=== PATIENT | male | born 1945 | race Caucasian/White ===

== ENCOUNTER → 2018-07-16 | Outpatient (CLI) | payer MEDICARE, OTHER ==
--- NOTE | 2018-07-16 13:44 | Diagnostic Imaging Report ---
Exam: KUB - 2 views Clinical History: Renal calculus. Comparison: Report from CT abdomen/pelvis dated 10/06/2008, the images are not available for review. Findings: The upper abdomen is partially excluded from the [id number]. No radiographic evidence of stone overlying the expected location of the kidneys, ureters, or bladder. Likely phleboliths project over the pelvis. Non-obstructive bowel gas pattern. No acute bony abnormality. Impression: No radiographic evidence of urinary stone. Signed by: Dr. Kelby Arenas MD on 07/16/2018 1:40 PM
== END ==
LOC: US 11:15
PROVIDERS: ATTEND Urology
DX: N18.9 Chronic kidney disease, unspecified (principal)
CPT/HCPCS: 74018

== ENCOUNTER → 2018-07-17 | Outpatient (CLI) | payer MEDICARE, OTHER ==
--- NOTE | 2018-07-17 16:21 | Diagnostic Imaging Report ---
EXAM: Renal Ultrasound INDICATION: Chronic kidney disease. COMPARISON: None TECHNIQUE: Transverse and longitudinal images of the kidneys and bladder were obtained. FINDINGS: Right Kidney: Length: Measures 11.2 x 5.6 x 5.1 cm, the renal cortex measures 1.4 cm Appearance: Increased echogenicity. Collecting system: No hydronephrosis Stones: None Cyst/Mass: There is an anechoic bilobed cyst with a possible thin septation in the upper pole. The cyst measures up to 2.3 x 2.1 x 2.8 cm. Left Kidney: Length: Measures 12.7 x 5.5 x 5.1 cm, the renal cortex measures 1.7 cm. Appearance: Increased echogenicity. Collecting system: No hydronephrosis Stones: None Cyst/Mass: Multiple left-sided simple appearing predominant anechoic cysts, measuring up to 2.2 x 1.6 x 1.8 cm in the midpole, an additional 1.5 x 1.4 x 1.7 cm cyst in the midpole, and a 1.7 x 1.3 x 1.5 cm cyst in the inferior pole. Bladder: Unremarkable in appearance. Bilateral ureteral jets are present. The prevoid volume is 137.8 cc. The post void volume is not recorded. Prostate: The prostate measures 4.5 x 4.8 x 3.8 cm. The volume is 43.2 cc. IMPRESSION: Increased renal echogenicity, suggestive of medical renal disease. No evidence of hydronephrosis. Prostatomegaly. Multiple simple appearing left-sided cysts. Anechoic 2.8 cm bilobed cyst in the right upper pole with possible thin septation as above. Signed by: Dr. Kelby Arenas MD on 07/17/2018 4:18 PM
== END ==
LOC: US 14:49
PROVIDERS: ATTEND Urology
DX: N18.9 Chronic kidney disease, unspecified (principal); N20.0 Calculus of kidney
CPT/HCPCS: 76770

== ENCOUNTER → 2019-04-18 | Outpatient (CLI) | payer MEDICARE, OTHER ==
--- NOTE | 2019-04-18 11:03 | Diagnostic Imaging Report ---
Abdomen, 1 view. History: History of kidney stones. Findings: Air is scattered throughout nondilated small and large bowel. There are no visible renal calculi. Calcified phleboliths are present in the pelvis bilaterally. Degenerative changes are present in both hips. IMPRESSION: No visible renal calculi. Signed by: Humberot Maradiaga on 04/18/2019 11:00 AM
== END ==
LOC: RAD 09:53
PROVIDERS: ATTEND Urology
DX: N20.0 Calculus of kidney (principal)
CPT/HCPCS: 74018

== ENCOUNTER → 2020-07-23 | Outpatient (CLI) | payer MEDICARE, OTHER | LOC: US 14:28 | PROVIDERS: ATTEND Urology | DX: N39.0 Urinary tract infection, site not specified (principal); R31.21 Asymptomatic microscopic hematuria | CPT/HCPCS: 74018; 76770 ==